=== PATIENT | male | born 1980 | race Two or more races ===

== ENCOUNTER 2018-05-09 16:59 | Inpatient (IN) | payer SELFPAY ==
[~2018-05-09] VITALS: Ht 185.4 cm; Wt 107.9 kg
[2018-05-09 17:34] LABS: Urine Bacteria NONE SEEN /hpf (None Seen); Urine Blood TRACE /uL (Negative); Urine Mucus FEW (None Seen); Urine Specific Gravity 1.018 (1.001-1.035); Urine WBC <1 /hpf (0 - 3)
[2018-05-09 18:24] LABS: Basophils # (auto) 0 uL; Basophils % (auto) 0.2 % (0.0-2.0); Eosinophils # (auto) 0.2 uL; Eosinophils % (auto) 1.5 % (0.0-7.0); Hematocrit 49.1 % (41.0-53.0); Lymphocytes # (auto) 1.8 uL; Mean Corpuscular Hemoglobin 32.5 pg (28.0-32.0); Mean Corpuscular Hgb Conc. 34.7 g/dL (32.0-36.0); Mean Corpuscular Volume 93.7 fL (80.0-100.0); Monocytes # (auto) 1.1 uL; Monocytes % (auto) 9.2 % (0.0-12.0); Neutrophils # (auto) 9.4 uL; Neutrophils % (auto) 75.1 % (37.0-80.0); Nucleated Red Blood Cells % 0.1 %; Platelet Count (auto) 255 10^3/uL (140-450); Red Blood Cells 5.24 10^6/uL (4.5-5.90); Red Cell Distribution Width 12.8 % (11.8-14.3); White Blood Cell 12.5 10^3/uL (4.4-10.8)
[2018-05-09 18:45] LABS: Albumin 4.2 g/dL (3.4-5.0); BUN/Creatinine Ratio 7.8; Bilirubin, Total 2.1 mg/dL (0.2-1.0); Calcium 8.8 mg/dL (8.5-10.1); Total Protein 8.4 g/dL (6.4-8.2)
[2018-05-09] MEDS ORDERED: SODIUM CHLORIDE 0.9% 1,000 ML IVB ONE (19:42)
[2018-05-09 20:09] LABS: Magnesium 2.7 mg/dL (1.6-2.6)
[2018-05-09 20:26] LABS: INR 0.94 (0.9-1.15); Partial Thromboplastin Time 30.8 sec (23.78-33.04); Prothrombin Time 10.1 sec (9.27-12.13)
[2018-05-09] MEDS ORDERED: ACETAMINOPHEN 325 MG TAB PO PRN (20:45)
[2018-05-09] MEDS ORDERED: ONDANSETRON HCL 4 MG/2 ML VIAL IV PRN (20:45)
[2018-05-09] MEDS ORDERED: MEPERIDINE HCL (50 MG/ML) 1 ML VIAL ONE (21:40)
[2018-05-09] MEDS ORDERED: MEPERIDINE HCL (25 MG/ML) 1ML VIAL IV ONE (21:45)
[2018-05-09] MEDS ORDERED: ONDANSETRON HCL 4 MG/2 ML VIAL IV ONE (21:45)
[2018-05-09] MEDS: metroNIDAZOLE 500MG/100ML 100 ML IV SCH (22:00)
[2018-05-09] MEDS: FAMOTIDINE 20 MG TAB PO SCH (22:00)
[2018-05-09] MEDS: HYDROcodone-ACET 5/325MG TAB PO PRN (23:39)
[2018-05-09] MEDS: TEMAZEPAM 15 MG CAP PO PRN (23:39)
[2018-05-10] MEDS: metroNIDAZOLE 500MG/100ML 100 ML IV SCH ×3 (06:00→21:16)
[2018-05-10] MEDS ORDERED: NALBUPHINE HCL 10 MG/1ml INJECTION ONE (07:21)
[2018-05-10] MEDS: NALBUPHINE HCL 10 MG/1ml INJECTION IV PRN ×2 (07:23→18:14)
[2018-05-10 08:45] LABS: Basophils # (auto) 0 uL; Basophils % (auto) 0.1 % (0.0-2.0); Eosinophils # (auto) 0.2 uL; Eosinophils % (auto) 1.4 % (0.0-7.0); Hematocrit 47.2 % (41.0-53.0); Hemoglobin 16.3 g/dL (13.5-17.5); Lymphocytes # (auto) 1.6 uL; Lymphocytes % (auto) 13.5 % (10.0-50.0); Mean Corpuscular Hemoglobin 32.3 pg (28.0-32.0); Mean Corpuscular Hgb Conc. 34.6 g/dL (32.0-36.0); Mean Corpuscular Volume 93.3 fL (80.0-100.0); Monocytes # (auto) 1.1 uL; Monocytes % (auto) 9.7 % (0.0-12.0); Neutrophils # (auto) 8.7 uL; Neutrophils % (auto) 75.3 % (37.0-80.0); Platelet Count (auto) 236 10^3/uL (140-450); Red Blood Cells 5.06 10^6/uL (4.5-5.90); Red Cell Distribution Width 12.6 % (11.8-14.3); White Blood Cell 11.5 10^3/uL (4.4-10.8)
[2018-05-10 08:55] LABS: Albumin 3.7 g/dL (3.4-5.0); Anion Gap 10 (5-15); BUN/Creatinine Ratio 9.4; Blood Urea Nitrogen 8 mg/dL (7-18); Calcium 8.3 mg/dL (8.5-10.1); Carbon Dioxide 25 mmol/L (21-32); Chloride 104 mmol/L (98-107); GFR African American 129 mL/min; GFR Non-African American 107 mL/min; Glucose 97 mg/dL (74-106); Potassium 4.1 mmol/L (3.5-5.1); Sodium 139 mmol/L (136-145)
[2018-05-10 09:05] LABS: Alanine Aminotransferase 110 U/L (16-61); Alkaline Phosphatase 76 U/L (45-117); Aspartate Aminotransferase 34 U/L (15-37); Bilirubin, Total 2.5 mg/dL (0.2-1.0); Total Protein 7.6 g/dL (6.4-8.2)
[2018-05-10] MEDS: HYDROcodone-ACET 5/325MG TAB PO PRN ×2 (09:06→20:06)
[2018-05-10] MEDS: cefTRIAXone 1GM/10ml IVPUSH 10 ML IV SCH (09:16)
[2018-05-10] MEDS: ENOXAPARIN SOD 40 MG/0.4 ML SYRINGE SC SCH (10:00)
[2018-05-10] MEDS: FAMOTIDINE 20 MG TAB PO SCH ×2 (10:00→21:15)
[2018-05-10 12:00] VITALS: BP 145/79
[2018-05-10 12:57] VITALS: BP 145/79
[2018-05-10 17:00] VITALS: BP 134/85
[2018-05-10 21:39] VITALS: BP 141/76
[2018-05-11] MEDS: HYDROcodone-ACET 5/325MG TAB PO PRN ×3 (00:47→21:13)
[2018-05-11] MEDS ORDERED: KETOROLAC TROMETH 30 MG/ML 1ML VIAL IV ONE (04:00)
[2018-05-11 05:00] VITALS: BP 116/76
[2018-05-11] MEDS: metroNIDAZOLE 500MG/100ML 100 ML IV SCH ×3 (05:29→21:13)
[2018-05-11 07:09] LABS: Basophils # (auto) 0 uL; Basophils % (auto) 0.1 % (0.0-2.0); Eosinophils # (auto) 0.2 uL; Eosinophils % (auto) 1.8 % (0.0-7.0); Hematocrit 46.7 % (41.0-53.0); Hemoglobin 16.2 g/dL (13.5-17.5); Lymphocytes # (auto) 1.4 uL; Lymphocytes % (auto) 12.3 % (10.0-50.0); Mean Corpuscular Hemoglobin 32.3 pg (28.0-32.0); Mean Corpuscular Hgb Conc. 34.7 g/dL (32.0-36.0); Monocytes # (auto) 1.1 uL; Monocytes % (auto) 9.8 % (0.0-12.0); Neutrophils # (auto) 8.7 uL; Nucleated Red Blood Cells % 0.1 %; Platelet Count (auto) 223 10^3/uL (140-450); Red Blood Cells 5.02 10^6/uL (4.5-5.90); Red Cell Distribution Width 12.7 % (11.8-14.3); White Blood Cell 11.5 10^3/uL (4.4-10.8)
[2018-05-11 07:31] LABS: Albumin 3.6 g/dL (3.4-5.0); BUN/Creatinine Ratio 11.9; Calcium 8.7 mg/dL (8.5-10.1); Potassium 3.9 mmol/L (3.5-5.1); Total Protein 7.6 g/dL (6.4-8.2)
[2018-05-11 09:00] VITALS: BP 156/91
[2018-05-11] MEDS: FAMOTIDINE 20 MG TAB PO SCH ×2 (10:00→21:13)
[2018-05-11] MEDS: ENOXAPARIN SOD 40 MG/0.4 ML SYRINGE SC SCH (10:26)
[2018-05-11] MEDS: cefTRIAXone 1GM/10ml IVPUSH 10 ML IV SCH (10:26)
[2018-05-11 12:32] VITALS: BP 124/86
[2018-05-11] MEDS: SODIUM CHLORIDE 0.9% 1,000 ML IV SCH (16:05)
[2018-05-11 17:50] VITALS: BP 144/84
[2018-05-11] MEDS: NALBUPHINE HCL 10 MG/1ml INJECTION IV PRN (19:47)
[2018-05-11] MEDS: TEMAZEPAM 15 MG CAP PO PRN (21:13)
[2018-05-11 22:00] VITALS: BP 130/77
[2018-05-12] MEDS: HYDROcodone-ACET 5/325MG TAB PO PRN ×3 (03:09→20:05)
[2018-05-12] MEDS: NALBUPHINE HCL 10 MG/1ml INJECTION IV PRN ×3 (04:17→21:41)
[2018-05-12 05:00] VITALS: BP 124/72
[2018-05-12] MEDS: metroNIDAZOLE 500MG/100ML 100 ML IV SCH ×3 (05:45→21:40)
[2018-05-12 06:49] LABS: Basophils # (auto) 0 uL; Basophils % (auto) 0.2 % (0.0-2.0); Eosinophils # (auto) 0.3 uL; Hematocrit 45.9 % (41.0-53.0); Hemoglobin 16.3 g/dL (13.5-17.5); Lymphocytes # (auto) 1.3 uL; Lymphocytes % (auto) 12.7 % (10.0-50.0); Mean Corpuscular Hemoglobin 33.1 pg (28.0-32.0); Mean Corpuscular Hgb Conc. 35.6 g/dL (32.0-36.0); Mean Corpuscular Volume 92.9 fL (80.0-100.0); Monocytes % (auto) 9.9 % (0.0-12.0); Neutrophils # (auto) 7.8 uL; Neutrophils % (auto) 74.2 % (37.0-80.0); Platelet Count (auto) 227 10^3/uL (140-450); Red Blood Cells 4.94 10^6/uL (4.5-5.90); Red Cell Distribution Width 12.6 % (11.8-14.3); White Blood Cell 10.5 10^3/uL (4.4-10.8)
[2018-05-12 06:57] LABS: BUN/Creatinine Ratio 15.6; Calcium 8.7 mg/dL (8.5-10.1); Potassium 4.2 mmol/L (3.5-5.1)
[2018-05-12] MEDS: cefTRIAXone 1GM/10ml IVPUSH 10 ML IV SCH (08:36)
[2018-05-12] MEDS: SODIUM CHLORIDE 0.9% 1,000 ML IV SCH (08:43)
[2018-05-12 08:44] VITALS: BP 117/68
[2018-05-12] MEDS: FAMOTIDINE 20 MG TAB PO SCH ×2 (09:36→21:40)
[2018-05-12] MEDS: ENOXAPARIN SOD 40 MG/0.4 ML SYRINGE SC SCH (09:37)
[2018-05-12 12:21] VITALS: BP 122/70
[2018-05-12 18:18] VITALS: BP 129/86
[2018-05-12] MEDS: TEMAZEPAM 15 MG CAP PO PRN (21:41)
[2018-05-12 21:44] VITALS: BP 142/87
[2018-05-13] MEDS: HYDROcodone-ACET 5/325MG TAB PO PRN ×3 (01:59→13:27)
[2018-05-13 04:48] VITALS: BP 124/71
[2018-05-13] MEDS: SODIUM CHLORIDE 0.9% 1,000 ML IV SCH (05:53)
[2018-05-13] MEDS: metroNIDAZOLE 500MG/100ML 100 ML IV SCH ×2 (05:54→13:33)
[2018-05-13 08:41] VITALS: BP 125/70
[2018-05-13] MEDS: FAMOTIDINE 20 MG TAB PO SCH (09:25)
[2018-05-13] MEDS: NALBUPHINE HCL 10 MG/1ml INJECTION IV PRN (09:25)
[2018-05-13] MEDS: ENOXAPARIN SOD 40 MG/0.4 ML SYRINGE SC SCH (09:26)
[2018-05-13] MEDS: cefTRIAXone 1GM/10ml IVPUSH 10 ML IV SCH (09:26)
[2018-05-13] MEDS ORDERED: LEVO500T21 PO (12:08)
[2018-05-13] MEDS ORDERED: METR500T PO (12:08)
[2018-05-13 12:29] VITALS: BP 130/82
[2018-05-13 12:53] LABS: Basophils # (auto) 0 uL; Basophils % (auto) 0.4 % (0.0-2.0); Eosinophils # (auto) 0.3 uL; Hematocrit 47.2 % (41.0-53.0); Hemoglobin 16.4 g/dL (13.5-17.5); Lymphocytes # (auto) 1.9 uL; Lymphocytes % (auto) 22.1 % (10.0-50.0); Mean Corpuscular Hemoglobin 32.4 pg (28.0-32.0); Mean Corpuscular Hgb Conc. 34.8 g/dL (32.0-36.0); Neutrophils # (auto) 5.4 uL; Neutrophils % (auto) 62.5 % (37.0-80.0); Platelet Count (auto) 272 10^3/uL (140-450); Red Blood Cells 5.07 10^6/uL (4.5-5.90); Red Cell Distribution Width 12.4 % (11.8-14.3); White Blood Cell 8.7 10^3/uL (4.4-10.8)
[2018-05-13 13:08] LABS: BUN/Creatinine Ratio 9.5; Potassium 4.1 mmol/L (3.5-5.1)
[2018-05-13 13:24] LABS: Albumin 3.6 g/dL (3.4-5.0); Bilirubin, Direct 0.3 mg/dL (0-0.2); Total Protein 8.1 g/dL (6.4-8.2)
[2018-05-13 14:25] VITALS: BP 130/82
== END 2018-05-13 15:28 | disposition home or self-care (01) | DRG 446 ==
LOC: ER 17:03 → OVERFLOW 17:04 → WEST WING 05-10 11:37
PROVIDERS: ADMIT Nurse Practitioner; ATTEND Internal Medicine
DX: K80.00 Calculus of gallbladder with acute cholecystitis without obstruction (principal); D64.9 Anemia, unspecified; K76.0 Fatty (change of) liver, not elsewhere classified; R79.89 Other specified abnormal findings of blood chemistry; N18.2 Chronic kidney disease, stage 2 (mild); N28.89 Other specified disorders of kidney and ureter; Z82.49 Family history of ischemic heart disease and other diseases of the circulatory system; Z71.3 Dietary counseling and surveillance
CPT/HCPCS: 36415; 74176; 76705; 78226; 80048; 80053; 80076; 81001; 82150; 82306; 83690; 83735; 85025; 85610; 85730; 87040; 94761; 96361; 96374; 96375; J1885; J2405; J3490